=== PATIENT | male | born 1980 | race Hispanic/Latino ===

== ENCOUNTER 2023-07-25 18:18 | Emergency (ER) | payer SELFPAY ==
[2023-07-25] VITALS (12 sets, daily range): BP systolic 142–178; BP diastolic 76–109
[~2023-07-25] VITALS: Ht 165.1 cm; Wt 88.5 kg
[2023-07-25 18:56] LABS: BASO% 0.6 % (0-3); EOS% 4.6 % (0-8); HEMATOCRIT 45.7 % (39.0-50.0); HEMOGLOBIN 16.2 g/dl (14.0-18.0); IMMATURE GRANULOCYTES 0.3 % (0.0-5.0); LYMPH% 33.8 % (15-41); MEAN CELL VOLUME 94.4 fL CALC (80.0-100.0); MEAN CORPUSCULAR HGB 33.5 pG CALC (26.0-32.0); MEAN CORPUSCULAR HGB CONC 35.4 g/dL CAL (32.0-36.0); MONO% 8.1 % (2-13); NEUT# 5.45 thou/uL (1.82-7.42); NEUT% 52.6 % (42-76); RED BLOOD COUNT 4.84 mill/uL (4.70-6.10); RED CELL DISTRI WIDTH 11.1 % (11.5-15.5)
[2023-07-25 19:28] LABS: PROTHROMBIN TIME 9.6 SECONDS (9.0-12.5)
[2023-07-25 19:29] LABS: ALBUMIN 4.9 g/dL (3.2-5.0); ALKALINE PHOSPHATASE 83 u/l (38-126); ANION GAP 12 (6-22 (CALC)); BILIRUBIN, TOTAL 0.4 mg/dL (0.2-1.3); BUN 18 mg/dL (9-20); BUN/CREATININE RATIO 18 (12-20 (CALC)); CALCULATED LDLCHOLESTEROL 177 mg/dL (62-129 (CALC)); CARBON DIOXIDE 26 mmol/l (22-30); CHLORIDE 104 mmol/l (95-108); CHOLESTEROL HDL RATIO 4.8 (<4.4 (CALC)); GFR FOR AFR.AMER. > 60 ML/MIN (>=60 (CALC)); GFR OTHER RACES > 60 ML/MIN (>=60 (CALC)); HDL CHOLESTEROL 54 mg/dL (39.0-59.0); POTASSIUM 3.5 mmol/l (3.5-5.1); SGOT/AST 57 u/l (17-59); SODIUM 138 mmol/l (137-146); TOTAL CHOLESTEROL 260 mg/dl (0-199); TOTAL PROTEIN 8.3 g/dL (6.3-8.2); TOTAL TRIGLYCERIDES 147 mg/dl (0-149); VLDL CHOLESTROL 29 mg/dl (5-56 (CALC))
[2023-07-25] MEDS ORDERED: ASPIRIN 325 MG/TAB PO ONE (19:35)
[2023-07-25 20:30] LABS: URINE BILIRUBIN - DIPSTICK Negative (NEGATIVE); URINE BLOOD DIPSTICK Negative (NEGATIVE); URINE GLUCOSE - DIPSTICK Negative (NEGATIVE); URINE KETONE Negative (NEGATIVE); URINE LEUK ESTERASE Negative (NEGATIVE); URINE NITRITE - DIPSTICK Negative (Negative); URINE PH 5.5 (4.5-8.0); URINE PROTEIN - DIPSTICK Negative (NEG-TRACE); URINE UROBILINOGEN - DIPSTICK 0.2 E.U./dL (0.2)
[2023-07-25 20:31] LABS: URINE COLOR Yellow
[2023-07-25] MEDS ORDERED: MAGNESIUM HYDROXIDE 30 ML UDC PO PRN (22:10)
[2023-07-25] MEDS ORDERED: ACETAMINOPHEN 325 MG/TAB PO PRN (22:10)
[2023-07-25] MEDS ORDERED: SODIUM CHLORIDE 0.9% 1,000 ML IV PRN (22:10)
[2023-07-25] MEDS ORDERED: DEXTROSE 250 ML IV PRN (22:25)
== END 2023-07-25 22:45 | disposition left against medical advice (07) | DRG 149 ==
LOC: ED 18:18
PROVIDERS: Nurse Practitioner
DX: R42 Dizziness and giddiness (principal); R20.0 Anesthesia of skin; R20.2 Paresthesia of skin; I10 Essential (primary) hypertension; Z53.29 Procedure and treatment not carried out because of patient's decision for other reasons
CPT/HCPCS: Q9967